=== PATIENT | female | born 1965 | race Two or more races ===

== ENCOUNTER 2018-02-12 17:21 | Emergency (ER) | payer MEDICAID ==
[~2018-02-12] VITALS: Ht 160 cm; Wt 77.1 kg
[2018-02-12] MEDS ORDERED: SODIUM CHLORIDE 0.9% 1,000 ML IV ONE (19:15)
[2018-02-12] MEDS ORDERED: diphenhdrAMINE HCL 50 MG/1 ML VL IV ONE (19:15)
[2018-02-12] MEDS ORDERED: FAMOTIDINE (10MG/ML) 2ML VL IV ONE (19:15)
[2018-02-12] MEDS ORDERED: methylPREDNISolone SOD SUCC 125 MG/2 ML VL IV ONE (19:15)
[2018-02-12] MEDS ORDERED: LORATADINE 10 MG TAB PO ONE (19:15)
[2018-02-12 19:48] VITALS: BP 130/80
== END 2018-02-12 19:55 | disposition home or self-care (01) ==
LOC: ER 17:24
DX: M62.838 Other muscle spasm (principal); M79.602 Pain in left arm; Z88.1 Allergy status to other antibiotic agents
CPT/HCPCS: 72040; 73030